=== PATIENT | female | born 1990 | race Caucasian/White ===

== ENCOUNTER 2017-01-28 07:40 | Inpatient (IN) | payer MEDICAID ==
[~2017-01-28] VITALS: Ht 167.6 cm; Wt 106.2 kg
[2017-01-28] VITALS (26 sets, daily range): BP systolic 105–150; BP diastolic 51–87
[~2017-01-28 07:40] MED LIST: AMOXICILLIN500 MG OR; AMOXICILLIN500 MG PO; ANTIVERT OR; ANTIVERT25 MG OR; BACTRIM DS1 TAB OR; BIRTH CONTROL PILLS; BIRTH CONTROL PO; CIPRO500 MG PO; CLARITIN10 MG OR; DIFLUNISAL500 MG OR; DOXYCYC MONO100 M1 OR; ERY-TAB333 MG OR; FERR SULFATE325 MG PO; FIORICET PO; FLEXERIL OR; FLONASE NASAL50 MCG; GENTAMICIN15 ML/BTL OP; IBUPROFEN600 MG PO; LORTAB 5 OR; NAPROSYN500 MG OR; NAPROSYN500 MG PO; NO HOME MEDS; NO MEDS; PRE-NATAL PO; PRENATAL1 TA1; ROBITUSSIN AC10 ML OR; ZYRTEC10 MG PO; [UNRECOGNIZED DRUG - REMARK]
[2017-01-28 08:35] LABS: URINE BILIRUBIN - DIPSTICK NEGATIVE (NEGATIVE); URINE BLOOD DIPSTICK NEGATIVE (NEGATIVE); URINE CLARITY CLEAR; URINE COLOR YELLOW; URINE GLUCOSE - DIPSTICK NEGATIVE (NEGATIVE); URINE KETONE NEGATIVE (NEGATIVE); URINE LEUK ESTERASE TRACE (NEGATIVE); URINE NITRITE - DIPSTICK NEGATIVE (Negative); URINE PH 6.5 (4.5-8.0); URINE PROTEIN - DIPSTICK NEGATIVE (NEG-TRACE); URINE SPECIFIC GRAVITY <=1.005; URINE UROBILINOGEN - DIPSTICK 0.2 E.U./dL (0.2)
[2017-01-28 08:36] LABS: BARBITURATES NEGATIVE (NEGATIVE); COCAINE NEGATIVE (NEGATIVE); METHADONE NEGATIVE (NEGATIVE); OXCYCODONE NEGATIVE (NEGATIVE); TETRAHYDROCANNABIONOL NEGATIVE (NEGATIVE); TRICYLIC ANTIDEPRESSANTS NEGATIVE (NEGATIVE)
[2017-01-28 08:56] LABS: HEMATOCRIT 36.8 % (37.0-47.0); HEMOGLOBIN 12.5 g/dl (12.0-16.0); IMMATURE GRANULOCYTES 0.3 % (0.0-1.0); MEAN CELL VOLUME 88.9 fL CALC (80.0-100.0); MEAN CORPUSCULAR HGB 30.2 pG CALC (26.0-32.0); NEUT# 6.35 thou/uL (2.00-7.15); RED BLOOD COUNT 4.14 mill/uL (4.20-5.60); RED CELL DISTRI WIDTH 13.6 % (11.5-15.5)
[2017-01-28 09:18] LABS: ALBUMIN 3.5 g/dL (3.2-5.0); ALKALINE PHOSPHATASE 121 u/l (38-126); ANION GAP 14 (6-22 (CALC)); BILIRUBIN, TOTAL 0.5 mg/dL (0.0-1.4); BUN 5 mg/dL (7-17); BUN/CREATININE RATIO 11 (12-20 (CALC)); CALCIUM 9.1 mg/dL (8.4-10.2); CARBON DIOXIDE 22 mmol/l (22-30); CHLORIDE 106 mmol/l (95-108); CREATININE 0.5 mg/dL (0.5-1.0); GFR > 60 ML/MIN (>=60 (CALC)); GFR FOR AFR.AMER. > 60 ML/MIN (>=60 (CALC)); GLUCOSE 115 mg/dL (65-105); POTASSIUM 3.5 mmol/l (3.5-5.1); SGOT/AST 17 u/l (14-36); SGPT/ALT 20 u/l (9-52); SODIUM 138 mmol/l (137-146); TOTAL PROTEIN 6.3 g/dL (6.3-8.2)
[2017-01-29 03:35] VITALS: BP 117/59
[2017-01-29 04:30] LABS: HEMATOCRIT 35.1 % (37.0-47.0); HEMOGLOBIN 11.8 g/dl (12.0-16.0); IMMATURE GRANULOCYTES 0.4 % (0.0-1.0); MEAN CORPUSCULAR HGB 30.3 pG CALC (26.0-32.0); MEAN CORPUSCULAR HGB CONC 33.6 g/L CALC (32.0-36.0); NEUT# 10.3 thou/uL (2.00-7.15); RED BLOOD COUNT 3.9 mill/uL (4.20-5.60); RED CELL DISTRI WIDTH 13.7 % (11.5-15.5)
[2017-01-29 07:10] VITALS: BP 118/54
[2017-01-29 16:30] VITALS: BP 113/73
[2017-01-29 19:20] VITALS: BP 113/51
[2017-01-30] MEDS ORDERED: IBUPROFEN600 MG PO (07:13)
[2017-01-30 08:34] VITALS: BP 125/66
== END 2017-01-30 12:55 | disposition home or self-care (01) | DRG 775 ==
LOC: OB 07:40
PROC: 10E0XZZ Delivery of Products of Conception, External Approach (ICD-10-PCS; principal; 2017-01-28)
PROC: 3E0P3VZ Introduction of Hormone into Female Reproductive, Percutaneous Approach (ICD-10-PCS; 2017-01-28)
DX: O48.0 Post-term pregnancy (principal); E66.01 Morbid (severe) obesity due to excess calories; O99.214 Obesity complicating childbirth; O76 Abnormality in fetal heart rate and rhythm complicating labor and delivery; Z68.37 Body mass index [BMI] 37.0-37.9, adult; Z37.0 Single live birth; Z3A.41 41 weeks gestation of pregnancy

== ENCOUNTER 2017-08-24 10:39 | Emergency (ER) | payer MEDICAID ==
[~2017-08-24] VITALS: Ht 167.6 cm; Wt 86.0 kg
[2017-08-24 11:29] LABS: HEMATOCRIT 37.6 % (37.0-47.0); HEMOGLOBIN 12.5 g/dl (12.0-16.0); IMMATURE GRANULOCYTES 0.2 % (0.0-1.0); MEAN CELL VOLUME 90.4 fL CALC (80.0-100.0); MEAN CORPUSCULAR HGB CONC 33.2 g/L CALC (32.0-36.0); NEUT# 3.22 thou/uL (2.00-7.15); RED BLOOD COUNT 4.16 mill/uL (4.20-5.60); RED CELL DISTRI WIDTH 12.9 % (11.5-15.5)
[2017-08-24 12:10] VITALS: BP 120/75
== END 2017-08-24 12:10 | disposition home or self-care (01) | DRG 761 ==
LOC: ED 10:39
PROVIDERS: Emergency Medicine
DX: N93.8 Other specified abnormal uterine and vaginal bleeding (principal)

== ENCOUNTER 2018-03-20 19:35 | Emergency (ER) | payer OTHER ==
[~2018-03-20] VITALS: Ht 167.6 cm; Wt 108.0 kg
[2018-03-20] MEDS ORDERED: PRENATA3 PO (19:42)
[2018-03-20] MEDS ORDERED: AMOXICILLIN875 MG PO (20:21)
[2018-03-20 20:30] VITALS: BP 134/86
== END 2018-03-20 20:30 | disposition home or self-care (01) ==
LOC: ED 19:35
DX: J02.9 Acute pharyngitis, unspecified (principal); R50.9 Fever, unspecified; H92.09 Otalgia, unspecified ear; J45.909 Unspecified asthma, uncomplicated

== ENCOUNTER 2018-08-16 10:56 | Emergency (ER) | payer OTHER ==
[~2018-08-16] VITALS: Ht 167.6 cm; Wt 104.0 kg
[~2018-08-16 10:56] MED LIST changes: +AMOXICILLIN875 MG PO; +PRENATA3 PO
[2018-08-16 12:31] VITALS: BP 138/77
== END 2018-08-16 12:36 | disposition home or self-care (01) | DRG 90 ==
LOC: ED 10:56
DX: S06.0X0A Concussion without loss of consciousness, initial encounter (principal); S16.1XXA Strain of muscle, fascia and tendon at neck level, initial encounter; V49.50XA Passenger injured in collision with unspecified motor vehicles in traffic accident, initial encounter

== ENCOUNTER 2018-12-22 16:28 | Emergency (ER) | payer OTHER ==
[~2018-12-22] VITALS: Ht 167.6 cm; Wt 105.0 kg
[2018-12-22 16:56] LABS: URINE BILIRUBIN - DIPSTICK NEGATIVE (NEGATIVE); URINE BLOOD DIPSTICK NEGATIVE (NEGATIVE); URINE COLOR YELLOW; URINE GLUCOSE - DIPSTICK NEGATIVE (NEGATIVE); URINE KETONE NEGATIVE (NEGATIVE); URINE LEUK ESTERASE NEGATIVE (NEGATIVE); URINE NITRITE - DIPSTICK NEGATIVE (Negative); URINE PH 5.5 (4.5-8.0); URINE PROTEIN - DIPSTICK NEGATIVE (NEG-TRACE); URINE SPECIFIC GRAVITY >=1.030; URINE UROBILINOGEN - DIPSTICK 0.2 E.U./dL (0.2)
[2018-12-22] MEDS ORDERED: NAPROSYN250 MG PO (17:12)
[2018-12-22 17:22] VITALS: BP 141/80
== END 2018-12-22 17:22 | disposition home or self-care (01) ==
LOC: ED 16:28
DX: R10.30 Lower abdominal pain, unspecified (principal); R11.0 Nausea; R42 Dizziness and giddiness; N89.8 Other specified noninflammatory disorders of vagina

== ENCOUNTER 2019-02-22 17:53 | Emergency (ER) | payer OTHER ==
[~2019-02-22] VITALS: Ht 167.6 cm; Wt 104.0 kg
[~2019-02-22 17:53] MED LIST changes: +NAPROSYN250 MG PO
[2019-02-22 19:49] LABS: HEMATOCRIT 40.2 % (37.0-47.0); IMMATURE GRANULOCYTES 0.3 % (0.0-5.0); MEAN CORPUSCULAR HGB 28.4 pG CALC (26.0-32.0); MEAN CORPUSCULAR HGB CONC 32.3 g/L CALC (32.0-36.0); NEUT# 4.63 thou/uL (2.00-7.15); RED BLOOD COUNT 4.57 mill/uL (4.20-5.60); RED CELL DISTRI WIDTH 13.2 % (11.5-15.5)
[2019-02-22 20:03] LABS: ALKALINE PHOSPHATASE 86 u/l (38-126); ANION GAP 15 (6-22 (CALC)); BILIRUBIN, TOTAL 0.5 mg/dL (0.0-1.4); BUN 9 mg/dL (7-17); BUN/CREATININE RATIO 16 (12-20 (CALC)); CARBON DIOXIDE 25 mmol/l (22-30); CHLORIDE 103 mmol/l (95-108); CREATININE 0.6 mg/dL (0.5-1.0); GFR > 60 ML/MIN (>=60 (CALC)); GFR FOR AFR.AMER. > 60 ML/MIN (>=60 (CALC)); POTASSIUM 3.9 mmol/l (3.5-5.1); SGOT/AST 20 u/l (14-36); SODIUM 139 mmol/l (137-146)
[2019-02-22 20:05] LABS: ALBUMIN 4.5 g/dL (3.2-5.0); TOTAL PROTEIN 8.1 g/dL (6.3-8.2)
[2019-02-22] MEDS ORDERED: ANTIVERT PO (21:14)
[2019-02-22 21:18] VITALS: BP 132/86
== END 2019-02-22 21:25 | disposition home or self-care (01) ==
LOC: ED 17:53
PROVIDERS: Emergency Medicine
DX: R42 Dizziness and giddiness (principal)

== ENCOUNTER 2019-07-09 | Emergency (ER) | payer OTHER ==
[~2019-07-09] MED LIST changes: +ANTIVERT PO
[2019-07-09 11:47] LABS: URINE BILIRUBIN - DIPSTICK NEGATIVE (NEGATIVE); URINE BLOOD DIPSTICK NEGATIVE (NEGATIVE); URINE COLOR YELLOW; URINE GLUCOSE - DIPSTICK NEGATIVE (NEGATIVE); URINE KETONE NEGATIVE (NEGATIVE); URINE LEUK ESTERASE TRACE (NEGATIVE); URINE NITRITE - DIPSTICK NEGATIVE (Negative); URINE PROTEIN - DIPSTICK NEGATIVE (NEG-TRACE); URINE UROBILINOGEN - DIPSTICK 0.2 E.U./dL (0.2)
[2019-07-09] MEDS ORDERED: TRAMADOL HYDROC50 MG PO (11:50)
[2019-07-09] MEDS ORDERED: FLEXERIL PO (11:50)
== END 2019-07-09 12:20 | disposition home or self-care (01) ==
DX: S33.5XXA Sprain of ligaments of lumbar spine, initial encounter (principal); M51.36 Other intervertebral disc degeneration, lumbar region; X50.0XXA Overexertion from strenuous movement or load, initial encounter; Y93.89 Activity, other specified; Y92.009 Unspecified place in unspecified non-institutional (private) residence as the place of occurrence of the external cause

== ENCOUNTER 2019-09-20 15:50 | Emergency (ER) | payer OTHER ==
[~2019-09-20] VITALS: Ht 167.6 cm; Wt 90.0 kg
[~2019-09-20 15:50] MED LIST changes: +FLEXERIL PO; +TRAMADOL HYDROC50 MG PO
[2019-09-20 17:47] VITALS: BP 147/86
== END 2019-09-20 17:35 | disposition home or self-care (01) ==
LOC: ED 15:50
DX: R51 Headache (principal)

== ENCOUNTER 2020-04-04 16:30 | Emergency (ER) | payer OTHER ==
[~2020-04-04] VITALS: Ht 167.6 cm; Wt 104.5 kg
[~2020-04-04 16:30] MED LIST changes: +TAM75CAP PO
[2020-04-04 19:15] VITALS: BP 122/80
== END 2020-04-04 19:15 | disposition home or self-care (01) ==
LOC: ED 16:30
DX: R11.2 Nausea with vomiting, unspecified (principal); J45.909 Unspecified asthma, uncomplicated; Z20.822 Contact with and (suspected) exposure to COVID-19

== ENCOUNTER 2020-11-26 06:09 | Day surgery (SDC) | payer OTHER ==
[~2020-11-26] VITALS: Ht 167.6 cm; Wt 109.8 kg
[2020-11-26] MEDS ORDERED: DOXYCYCL HYC100 MG PO (06:30)
[2020-11-26] MEDS ORDERED: ZINC PO (06:31)
[2020-11-26] MEDS ORDERED: VITAMIN C PO (06:31)
[2020-11-26 07:33] VITALS: BP 121/72
== END 2020-11-26 08:00 | disposition home or self-care (01) ==
LOC: ORM 06:09
PROVIDERS: ATTEND Anesthesiology Pain Medicine
DX: M54.5 Low back pain (principal)

== ENCOUNTER 2021-03-19 08:22 | Emergency (ER) | payer OTHER ==
[~2021-03-19] VITALS: Ht 167.6 cm; Wt 118.0 kg
[~2021-03-19 08:22] MED LIST changes: +DOXYCYCL HYC100 MG PO; +VITAMIN C PO; +ZINC PO
[2021-03-19 09:17] LABS: URINE BILIRUBIN - DIPSTICK NEGATIVE (NEGATIVE); URINE BLOOD DIPSTICK SMALL (NEGATIVE); URINE COLOR YELLOW; URINE GLUCOSE - DIPSTICK NEGATIVE (NEGATIVE); URINE KETONE NEGATIVE (NEGATIVE); URINE LEUK ESTERASE NEGATIVE (NEGATIVE); URINE PROTEIN - DIPSTICK NEGATIVE (NEG-TRACE); URINE SPECIFIC GRAVITY 1.025; URINE UROBILINOGEN - DIPSTICK 0.2 E.U./dL (0.2)
[2021-03-19 09:40] LABS: URINE NITRITE - DIPSTICK POSITIVE (Negative)
[2021-03-19 09:43] LABS: URINE BACTERIA MANY hpf; URINE EPITHELIAL CELLS FEW EPI/hpf (0-FEW)
[2021-03-19] MEDS ORDERED: NITROFURANTN100 M2 PO (09:50)
[2021-03-19 10:00] VITALS: BP 142/94
== END 2021-03-19 10:00 | disposition home or self-care (01) ==
LOC: ED 08:22
PROVIDERS: Family Medicine
DX: N39.0 Urinary tract infection, site not specified (principal); J45.909 Unspecified asthma, uncomplicated; E66.9 Obesity, unspecified; B96.1 Klebsiella pneumoniae [K. pneumoniae] as the cause of diseases classified elsewhere

== ENCOUNTER 2021-05-18 08:55 | Emergency (ER) | payer OTHER ==
[~2021-05-18] VITALS: Ht 167.6 cm; Wt 100.0 kg
[~2021-05-18 08:55] MED LIST changes: +NITROFURANTN100 M2 PO
[2021-05-18] MEDS ORDERED: VOLTAREN1%GEL TOP (11:02)
[2021-05-18 11:08] VITALS: BP 118/70
== END 2021-05-18 11:08 | disposition home or self-care (01) ==
LOC: ED 08:55
DX: M25.562 Pain in left knee (principal); J45.909 Unspecified asthma, uncomplicated

== ENCOUNTER 2021-07-12 09:20 | Emergency (ER) | payer OTHER ==
[~2021-07-12] VITALS: Ht 167.6 cm; Wt 109.0 kg
[~2021-07-12 09:20] MED LIST changes: +VOLTAREN1%GEL TOP
[2021-07-12] MEDS ORDERED: VOLTAREN1%GEL TOP (11:00)
[2021-07-12] MEDS ORDERED: FLEXERIL5 M1 PO (11:01)
[2021-07-12 11:53] VITALS: BP 141/82
== END 2021-07-12 12:21 | disposition home or self-care (01) ==
LOC: ED 09:20
DX: M51.86 Other intervertebral disc disorders, lumbar region (principal); J45.909 Unspecified asthma, uncomplicated

== ENCOUNTER 2021-07-14 15:36 | Emergency (ER) | payer OTHER ==
[2021-07-14] VITALS (11 sets, daily range): BP systolic 112–142; BP diastolic 69–89
[~2021-07-14] VITALS: Ht 167.6 cm; Wt 117.0 kg
[~2021-07-14 15:36] MED LIST changes: +FLEXERIL5 M1 PO
[2021-07-14] MEDS ORDERED: FLONASE AL50 MCG/ACT NAB (17:52)
== END 2021-07-14 18:24 | disposition home or self-care (01) ==
LOC: ED 15:36
DX: B34.9 Viral infection, unspecified (principal); J45.909 Unspecified asthma, uncomplicated; Z20.822 Contact with and (suspected) exposure to COVID-19

== ENCOUNTER 2021-07-19 21:00 | Emergency (ER) | payer OTHER ==
[~2021-07-19] VITALS: Ht 167.6 cm; Wt 110.0 kg
[~2021-07-19 21:00] MED LIST changes: +FLONASE AL50 MCG/ACT NAB
[2021-07-19 21:16] VITALS: BP 134/79
[2021-07-19 21:42] LABS: HEMATOCRIT 39.4 % (37.0-47.0); HEMOGLOBIN 12.5 g/dl (12.0-16.0); IMMATURE GRANULOCYTES 0.1 % (0.0-5.0); MEAN CELL VOLUME 88.7 fL CALC (80.0-100.0); MEAN CORPUSCULAR HGB 28.2 pG CALC (26.0-32.0); MEAN CORPUSCULAR HGB CONC 31.7 g/dL CAL (32.0-36.0); NEUT# 5.37 thou/uL (2.00-7.15); RED BLOOD COUNT 4.44 mill/uL (4.20-5.60); RED CELL DISTRI WIDTH 12.4 % (11.5-15.5)
[2021-07-19 21:43] LABS: URINE BILIRUBIN - DIPSTICK NEGATIVE (NEGATIVE); URINE BLOOD DIPSTICK MODERATE (NEGATIVE); URINE COLOR YELLOW; URINE GLUCOSE - DIPSTICK NEGATIVE (NEGATIVE); URINE KETONE NEGATIVE (NEGATIVE); URINE LEUK ESTERASE TRACE (NEGATIVE); URINE PH 5.5 (4.5-8.0); URINE PROTEIN - DIPSTICK NEGATIVE (NEG-TRACE); URINE UROBILINOGEN - DIPSTICK 0.2 E.U./dL (0.2)
[2021-07-19 21:45] LABS: URINE NITRITE - DIPSTICK NEGATIVE (Negative)
[2021-07-19 21:46] VITALS: BP 114/76
[2021-07-19 21:53] LABS: URINE SQUAMOUS EPITHELIAL CELL FEW EPI/hpf (0-FEW)
[2021-07-19 22:30] VITALS: BP 114/76
== END 2021-07-19 22:30 | disposition home or self-care (01) ==
LOC: ED 21:00
PROVIDERS: Family Medicine
DX: B34.9 Viral infection, unspecified (principal); J45.909 Unspecified asthma, uncomplicated

== ENCOUNTER 2021-08-16 13:14 | Emergency (ER) | payer OTHER ==
[~2021-08-16] VITALS: Ht 167.6 cm; Wt 109.1 kg
[2021-08-16 15:40] LABS: URINE BILIRUBIN - DIPSTICK NEGATIVE (NEGATIVE); URINE BLOOD DIPSTICK NEGATIVE (NEGATIVE); URINE GLUCOSE - DIPSTICK NEGATIVE (NEGATIVE); URINE KETONE TRACE mg/dL (NEGATIVE); URINE PROTEIN - DIPSTICK TRACE mg/dL (NEG-TRACE); URINE SPECIFIC GRAVITY >=1.030; URINE UROBILINOGEN - DIPSTICK 0.2 E.U./dL (0.2)
[2021-08-16 15:42] LABS: URINE COLOR DK. YELLOW; URINE LEUK ESTERASE SMALL (NEGATIVE); URINE NITRITE - DIPSTICK NEGATIVE (Negative)
[2021-08-16 15:46] LABS: URINE RBC 0-2 RBC/hpf (0-5); URINE SQUAMOUS EPITHELIAL CELL MANY EPI/hpf (0-FEW)
[2021-08-16] MEDS ORDERED: DECADRON4 MG PO (17:29)
[2021-08-16 17:46] VITALS: BP 141/88
== END 2021-08-16 17:40 | disposition home or self-care (01) ==
LOC: ED 13:14
PROVIDERS: Family Medicine
DX: M54.50 Low back pain, unspecified (principal); J45.909 Unspecified asthma, uncomplicated

== ENCOUNTER 2022-02-04 17:15 | Emergency (ER) | payer OTHER ==
[~2022-02-04] VITALS: Ht 167.6 cm; Wt 104.0 kg
[~2022-02-04 17:15] MED LIST changes: +DECADRON4 MG PO
[2022-02-04 17:49] LABS: HEMATOCRIT 40.7 % (37.0-47.0); HEMOGLOBIN 13.5 g/dl (12.0-16.0); IMMATURE GRANULOCYTES 0.1 % (0.0-5.0); MEAN CELL VOLUME 86.6 fL CALC (80.0-100.0); MEAN CORPUSCULAR HGB 28.7 pG CALC (26.0-32.0); MEAN CORPUSCULAR HGB CONC 33.2 g/dL CAL (32.0-36.0); NEUT# 3.67 thou/uL (2.00-7.15); RED BLOOD COUNT 4.7 mill/uL (4.20-5.60); RED CELL DISTRI WIDTH 12.6 % (11.5-15.5)
[2022-02-04 17:56] LABS: ALBUMIN 4.8 g/dL (3.2-5.0); ALKALINE PHOSPHATASE 81 u/l (38-126); ANION GAP 16 (6-22 (CALC)); BILIRUBIN, TOTAL 0.5 mg/dL (0.0-1.4); BUN 8 mg/dL (7-17); BUN/CREATININE RATIO 13 (12-20 (CALC)); CARBON DIOXIDE 27 mmol/l (22-30); CHLORIDE 103 mmol/l (95-108); CREATININE 0.6 mg/dL (0.5-1.0); GFR FOR AFR.AMER. > 60 ML/MIN (>=60 (CALC)); GFR OTHER RACES > 60 ML/MIN (>=60 (CALC)); POTASSIUM 3.9 mmol/l (3.5-5.1); SGOT/AST 35 u/l (14-36); SODIUM 143 mmol/l (137-146); TOTAL PROTEIN 7.9 g/dL (6.3-8.2)
[2022-02-04] MEDS ORDERED: MECLIZINE 2525 MG PO (18:51)
[2022-02-04 19:19] VITALS: BP 138/82
== END 2022-02-04 19:20 | disposition home or self-care (01) ==
LOC: ED 17:15
PROVIDERS: Family Medicine
DX: H81.12 Benign paroxysmal vertigo, left ear (principal); J45.909 Unspecified asthma, uncomplicated

== ENCOUNTER 2023-11-26 16:24 | Emergency (ER) | payer SELFPAY ==
[~2023-11-26] VITALS: Ht 167.6 cm; Wt 104.3 kg
[~2023-11-26 16:24] MED LIST changes: +MECLIZINE 2525 MG PO
[2023-11-26 16:35] VITALS: BP 138/100
[2023-11-26] MEDS ORDERED: FLEXERIL5 M1 PO (16:40)
[2023-11-26] MEDS ORDERED: MOTRIN800 MG PO (16:40)
[2023-11-26] MEDS ORDERED: KETOROLAC TROMETHAMINE 30 MG/ML SDV IM ONE (16:40)
[2023-11-26 16:45] VITALS: BP 140/86
[2023-11-26 16:55] VITALS: BP 140/86
== END 2023-11-26 17:00 | disposition home or self-care (01) | DRG 552 ==
LOC: ED 16:24
DX: M47.816 Spondylosis without myelopathy or radiculopathy, lumbar region (principal); M48.061 Spinal stenosis, lumbar region without neurogenic claudication

== ENCOUNTER 2024-03-01 20:46 | Emergency (ER) | payer SELFPAY ==
[~2024-03-01] VITALS: Ht 167.6 cm; Wt 104.0 kg
[~2024-03-01 20:46] MED LIST changes: +MOTRIN800 MG PO
[2024-03-01] MEDS ORDERED: OSELTAMIVIR PHOSPHATE 75 MG/TAB CAP PO ONE (21:10)
[2024-03-01] MEDS ORDERED: TAM75CAP PO (21:20)
[2024-03-01 21:52] VITALS: BP 130/80
== END 2024-03-01 22:00 | disposition home or self-care (01) | DRG 153 ==
LOC: ED 20:46
DX: J11.1 Influenza due to unidentified influenza virus with other respiratory manifestations (principal)